=== PATIENT | female | born 1950 | race Caucasian/White ===

== ENCOUNTER 2022-05-14 10:51 | Observation (INO) | payer MEDICARE, SELFPAY ==
[2022-05-14 11:06] VITALS: BP 114/67; PULSE 75; RESP 18; TEMP 36.5; O2SAT 94
--- NOTE | 2022-05-14 11:58 | ED_ITS ---
HPI - Extremity Problem General: Chief complaint: Extremity Problem,Nontraumatic Stated complaint: Right leg red and swollen Time Seen by Provider: 05/14/22 11:58 History of Present Illness: Ms. Craven is a 71-year-old lady with history of hypertension and history of cancer status post completion of treatment who presents to the emergency department due to atraumatic right leg pain. She reports onset of mild swelling and pain approximately 1 month ago that has been progressively worsening. Yesterday she noticed a wound on the medial aspect which began to drain and increased redness that it spread. Symptoms have progressed to the point that her pain is moderate to severe in intensity worse with ambulation and palpation. Denies fevers or chills. She did have cough and 1 episode of emesis earlier today. Denies known injury or specific provoking factor. No other specific changes in health, exacerbating, or alleviating factors identified. Onset (ago): month(s) Pain Consistency: constant Location: right and lower extremity Quality: aching Exacerbating factors: weight bearing and palpation Review of Systems General: Reports: 10 or more systems reviewed and unremarkable except in HPI and below PFSH ED PFSH: Medical History Anal cancer Borderline diabetes Cellulitis of leg, right History of cancer Port-A-Cath in place Right leg swelling Surgical History H/O: hysterectomy History of appendectomy Family History Other CAD (coronary artery disease) Social History Smoking and tobacco status: never smoked Alcohol intake: never History of recent travel: No Physical Exam Const: COMMON NORMALS: alert GENERAL APPEARANCE: cooperative, well developed and in distress (Uncomfortable appearing due to pain) HENMT: COMMON NORMALS: normocephalic and atraumatic HEAD & SCALP: normoceph alic and atraumatic Eye: COMMON NORMALS: conjunctivae normal CONJUNCTIVA: Yes conjunctivae normal SCLERA: sclerae normal Neck/C-Spine: COMMON NORMALS: supple GENERAL: Yes trachea midline Resp: COMMON NORMALS: normal respiratory effort EFFORT & INSPECTION: Yes able to speak in complete sentences Cardio: COMMON NORMALS: regular rate and regular rhythm RATE: regular rate RHYTHM: regular rhythm GI: COMMON NORMALS: Soft to palpation PALPATION: Yes Soft to palpation and No Tenderness to palpation present (GI) PERCUSSION: normal to percussion Extremity: NARRATIVE EXTREMITY EXAM: Edema and erythema most pronounced in distal half of right lower leg with erythema spread towards the knee and foot. Tender to palpation diffusely. No crepitus. approximately 4 cm x 1 cm superficial appearing wound with serous drainage. Distal CMS intact. Neuro: COMMON NORMALS: moves all extremities SENSORIUM/ORIENTATION: Yes alert and No Orientation impaired Psych: COMMON NORMALS: mental status grossly normal and Normal thought process present THOUGHT PROCESS: Normal thought process present Course ED course: - Patient was seen and evaluated by me at bedside - Patient placed on cardiac monitors, IV access obtained - Initial evaluation notable for exam as above - Labs and xrays personally interpreted by me - Analgesia, antiemetic, antibiotic given. - Labs notable for mild leukocytosis. Mild hypokalemia. BNP elevated. CRP and procalcitonin elevated. - Imaging notable for no acute fracture identified on tibia/femur x-ray. Ultrasound negative for DVT. - Upon serial reexamination after treatment the patient was mildly improved though requiring additional treatment - Based on patient history, evaluation, and testing as interpreted the most likely cause of the patient's condition is cellulitis - The results of ED evaluation were discussed with the patient including plan for admission due to requirement for level of care not available if discharged to prevent significant worsening/deterioration. - Admitting service was contacted and Dr Rojas with the hospitalist service agreed to admit the patient - Patient was admitted without further deterioration or significant events. Note: Click bubbles or prepopulated avila in note writing are used for assistance with data collection and billing and are inherently more limited than narrative and other text portions of this note. Please use narrative for additional clinical history and defer to narrative/free test for any case of contradictory information. If information appears in only free text or click bubble it should be considered present or absent as reported. Please contact note advertising copywriter for clarifications of clinical information or contradictory information. MDM is a brief summary, contradictory or erroneous seeming information should be clarified and full note should be reviewed. Vital Signs: Vital signs: Vital Signs Temperature 99.5 F 05/16/22 17:19 Pulse Rate 72 05/16/22 17:19 Respiratory Rate 16 05/16/22 17:19 Blood Pressure 148/76 05/16/22 17:19 Pulse Oximetry 94 05/16/22 17:19 MDM - Extremity (Nontraumatic) Medical Decision Making [id number]-year-old lady with recent history of cancer presenting with atraumatic leg swelling with redness and wound. Mild associated generalized symptoms. No evidence of DVT. Admitted for IV antibiotics. Medical Records I reviewed the patient's medical records. Lab Data I reviewed the patient's lab results. : 05/15/22 04:52 05/15/22 04:52 Radiology Impressions Tibia/Fibula X-Ray 05/14/22 12:05 Impression: Negative for right leg fracture. Chest X-Ray 05/14/22 12:07 Impression: 1. Right lower lobe patchy opacity which could represent pneumonia and/or atelectasis. 2. Atherosclerosis and cardiomegaly. Lower Extremity CTA 05/14/22 16:48 IMPRESSION: 1. No arterial stenosis, occlusion or dissection. 2. Diffuse subcutaneous edema in the right lower leg and foot. IMPRESSION: 1. No arterial stenosis, occlusion or dissection. 2. Achilles tendinopathy. Laboratory Results WBC 12.0 10^3/uL (4.0-10.0) H 05/14/22 12:14 RBC 4.33 10^6/uL (4.1-5.3) 05/14/22 12:14 Hgb 12.3 g/dL (11.5-15.3) 05/14/22 12:14 Hct 36.8 % (37.0-47.0) L 05/14/22 12:14 MCV 85.0 fl (81-99) 05/14/22 12:14 MCH 28.4 pg (28.0-34.0) 05/14/22 12:14 MCHC 33.4 g/dL (30.0-36.0) 05/14/22 12:14 RDW 14.6 % (12.1-15.1) 05/14/22 12:14 Plt Count 167 10^3/cmm (130-400) 05/14/22 12:14 MPV 10.2 fL (7.4-10.4) 05/14/22 12:14 Neut % (Auto) 87.7 % 05/14/22 12:14 Lymph % (Auto) 7.3 % 05/14/22 12:14 Rains % (Auto) 4.5 % 05/14/22 12:14 Eos % (Auto) 0.0 % 05/14/22 12:14 Baso % (Auto) 0.2 % 05/14/22 12:14 Neut # (Auto) 10.52 10^3/uL (1.8-7.7) H 05/14/22 12:14 Lymph # (Auto) 0.9 10^3/uL (0.8-4.8) 05/14/22 12:14 Rains # (Auto) 0.5 10^3/uL (0.2-0.9) 05/14/22 12:14 Eos # (Auto) 0.0 10^3/uL (0.0-0.8) 05/14/22 12:14 Baso # (Auto) 0.0 10^3/uL (0.0-0.1) 05/14/22 12:14 Nucleated RBC % (auto) 0 % 05/14/22 12:14 Nucleated RBCs # 0.0 /100WBC 05/14/22 12:14 Sodium 136 mmol/L (136-145) 05/14/22 12:14 Potassium 3.3 mmol/L (3.5-5.1) L 05/14/22 12:14 Chloride 100 mmol/L (98-107) 05/14/22 12:14 Carbon Dioxide 26 mmol/L (22-29) 05/14/22 12:14 Anion Gap 13.3 (5-19) 05/14/22 12:14 BUN 17 mg/dL (8-23) 05/14/22 12:14 Creatinine 0.7 mg/dL (0.5-0.9) 05/14/22 12:14 GFR Calculation Not Reportable 05/14/22 12:14 Glucose 130 mg/dL (65-115) H 05/14/22 12:14 Calculated Osmolality 285 mOsm/kg (285-295) 05/14/22 12:14 Uric Acid 5.4 mg/dL (2.4-5.7) 05/14/22 12:24 Calcium 8.2 mg/dL (8.5-10.5) L 05/14/22 12:14 Total Bilirubin 1.0 mg/dL (0.15-1.2) 05/14/22 12:14 AST 12 U/L (0-32) 05/14/22 12:14 ALT 8 U/L (0-33) 05/14/22 12:14 Alkaline Phosphatase 73 IU/L (35-105) 05/14/22 12:14 C-Reactive Protein 274.6 mg/L (0.0-4.9) H 05/14/22 12:24 NT-Pro-B Natriuret Pep 1986 pg/mL (0-125) H 05/14/22 12:24 Total Protein 7.0 g/dL (6.6-8.7) 05/14/22 12:14 Albumin 3.2 g/dL (3.5-5.2) L 05/14/22 12:14 Globulin 3.8 g/dL (1.3-4.6) 05/14/22 12:14 Procalcitonin 2.06 ng/mL (0-0.5) H 05/14/22 12:24 Discharge Plan Discharge Patient Disposition: Placed in Observation Admit Provider: Claudia Rojas Clinical Impression: Cellulitis of leg, right, Leg wound, right Discharge Diet: Cardiac Discharge Activity: Increase activity as tolerated Coding Level of Care Code ED Drive In Theater Attendant for Chg Fwd Exam Comprehensive
--- NOTE | 2022-05-14 12:05 | USCV_ITS ---
Herber Whitfield Age: 71 Gender: F : 1950 Exam Date: 05/14/2022 12:43 Ordering Phys: Arian Wheatley MD Technologist: SERGIO Exam Location: [facility] [place] Indication: RLE PAIN AND SWELLING HISTORY: Lower extremity swelling. Lower extremity pain. PROCEDURES: Venous duplex imaging was performed in only the right lower extremity. The following venous structures were evaluated: common femoral vein, profunda vein, proximal portion of the greater saphenous vein, superficial femoral vein, and the popliteal vein. In addition, the posterior tibial and peroneal trunk were evaluated. Serial compression, augmentation maneuvers, and spectral Doppler flow evaluation were performed. FINDINGS: Normal 2-D Doppler and augmentation and compressibility throughout the lower extremity venous structures. Additional imaging through the proximal calf veins also reveals no thrombus. Limited evaluation of the greater saphenous vein is patent with no thrombus. Examination was technically limited due to body habitus. CONCLUSIONS No DVT right lower extremity. Dr. Janette Garcia DO (Electronically Signed) Final Date: 14 May 2022 15:02 S
--- NOTE | 2022-05-14 12:05 | XR_ITS ---
WS: [id number] Right leg including the tibia and fibula, AP and lateral views, 05/14/2022 Clinical Data: swelling, medial wound Comparison: None. Findings: No fractures or dislocations are seen. The tibia and fibula are intact. The soft tissues are normal. XR/XR tibia fibula RT 2V [id number] Impression: Negative for right leg fracture.
--- NOTE | 2022-05-14 12:07 | XR_ITS ---
WS: [id number] Portable AP upright chest, 05/14/2022 Clinical Data: cough Comparison: Portable chest, 03/29/2019. Findings: No nodules, masses or effusions are seen. There is a minimal patchy opacity in right lower lobe which could represent atelectasis and/or pneumonia. The heart is enlarged. The pulmonary vascula rity is not increased. No pneumothorax is seen. The aortic arch and descending thoracic aorta show mi ld tortuosity. There is a left infusion catheter which ends in the superior vena cava. XR/XR chest 1V portable [id number] Impression: 1. Right lower lobe patchy opacity which could represent pneumonia and/or atele ctasis. 2. Atherosclerosis and cardiomegaly.
[2022-05-14 12:18] VITALS: RESP 18; O2SAT 97
[2022-05-14] MEDS: ondansetron 2 mg/ML SDV 2 mL 4 MG IVP (12:18)
[2022-05-14] MEDS: morphine 4 mg/mL SDV 1 mL IM (12:18)
[2022-05-14 12:37] VITALS: PULSE 70; RESP 18; O2SAT 98
[2022-05-14 12:37] LABS: Basophils % 0.2 %; Hematocrit 36.8 % (37.0-47.0); Hemoglobin 12.3 g/dL (11.5-15.3); Lymphocytes # 0.9 10^3/uL (0.8-4.8); Lymphocytes % 7.3 %; Mean Corpuscular HGB Conc 33.4 g/dL (30.0-36.0); Mean Corpuscular Hemoglobin 28.4 pg (28.0-34.0); Mean Platelet Volume 10.2 fL (7.4-10.4); Monocytes # 0.5 10^3/uL (0.2-0.9); Monocytes % 4.5 %; Neutrophils # 10.52 10^3/uL (1.8-7.7); Neutrophils % 87.7 %; Nucleated Red Blood Cells % 0 %; Platelet Count 167 10^3/cmm (130-400); Red Blood Count 4.33 10^6/uL (4.1-5.3); Red Cell Distribution Width 14.6 % (12.1-15.1)
[2022-05-14 13:00] LABS: Alanine Aminotransferase 8 U/L (0-33); Albumin Level 3.2 g/dL (3.5-5.2); Alkaline Phosphatase 73 IU/L (35-105); Anion Gap 13.3 (5-19); Aspartate Amino Transferase 12 U/L (0-32); Blood Urea Nitrogen 17 mg/dL (8-23); Calcium 8.2 mg/dL (8.5-10.5); Carbon Dioxide 26 mmol/L (22-29); Chloride 100 mmol/L (98-107); Globulin 3.8 g/dL (1.3-4.6); Glucose 130 mg/dL (65-115); Osmolality Calculated 285 mOsm/kg (285-295); Potassium 3.3 mmol/L (3.5-5.1); Sodium 136 mmol/L (136-145)
[2022-05-14] MEDS: ketorolac 30 mg/mL INJ 15 MG IVP (13:46)
--- NOTE | 2022-05-14 13:46 | P.HP_ITS ---
Providers/Chief Complaint Primary Care Provider: ALICIA CLEMONS MD Chief Complaint: Right leg red and swollen History of Present Illness Alexx Craven is a 71 year old female who carries history of anal cancer status post chemoradiotherapy, patient is presented to the hospital for worsening of swelling and redness of her right leg. Her symptoms started roughly a month ago, she has seen PCP who recommended her to go to the ER today, patient is stating that he started with a blister a month ago which got worse, now she is not able to put any weight on the right leg, it has gotten extremely red, the redness has involved her right knee she has not noticed any fever, nausea, vomiting, diarrhea or chest pain. She has not used any antibiotics. No bug bites. No evidence of snakebite. Patient is independent for daily activities, but lately started using a walker, today because of worsening of symptoms and recommendation of PCP she decided to come to the hospital for further evaluation. In the ER she has leukocytosis however she is not septic, afebrile, blood pressure stable Very tender to palpation, I have requested CTA right leg with runoff She has been getting antibiotics, Review of Systems Const: Reports: chills, body aches and malaise Eyes: Denies: change in vision ENMT: Denies: throat pain Card: Denies: chest pain Resp: Denies: dyspnea GI: Denies: abdominal pain : Denies: flank pain Musc: Reports: extremity pain, extremity swelling, joint swelling, joint redness and joint warmth Skin/Breast: Reports: rash, skin pain, skin tenderness and changing lesions Neuro: Denies: headache(s) Psych: Denies: anxiety Endo: Denies: polyuria Syed/Lymph: Denies: easy bruising All/Imm: Denies: urticaria Medications/Allergies Home Medications Medication Instructions Recorded Confirmed Last Taken Type amlodipine 10 mg tablet 10 mg PO QAM 04/07/20 05/14/22 05/14/22 History albuterol sulfate 90 mcg/actuation 2 puff INHALATION QID PRN 05/14/22 05/14/22 Unknown History aerosol inhaler cyanocobalamin (vitamin B-12) 5,000 mcg SUBLINGUAL DAILY 05/14/22 05/14/22 Unknown History 5,000 mcg sublingual tablet (Vitamin B-12) vitamin E 2 cap PO DAILY 05/14/22 05/14/22 Unknown History Allergies Allergy/AdvReac Type Severity Reaction Status Date / Time No Known Allergies Allergy Verified 05/14/22 11:08 PFSH Acute PFSH: Medical History Anal cancer Borderline diabetes Cellulitis of leg, right History of cancer Port-A-Cath in place Right leg swelling Surgical History H/O: hysterectomy History of appendectomy Family History Other CAD (coronary artery disease) Social History Smoking and tobacco status: never smoked Alcohol intake: never History of recent travel: No Vitals/I&O/Wt Last Vital Signs Temp 97.7 F 05/14/22 11:06 Pulse 70 05/14/22 12:37 Resp 18 05/14/22 12:37 BP 114/67 05/14/22 11:06 Pulse Ox 98 05/14/22 12:37 Weight last 48 hrs Weight 116.573 kg Physical Exam Narrative: elderly female Morbidly obese She has erythema of her right leg extending from toes all the way up to her right knee It mostly involves anterior surface, Tender to palpate No crepitation No signs of ischemic ulcers Open wound above right malleolus Left leg unremarkable, Abdomen is soft S1, S2, systolic murmur right second intercostal space No audible stridor or wheezing Awake and alert Complaining of pain of right leg Ankle swelling noted Data : 05/15/22 04:52 05/15/22 04:52 Micro: Microbiology 05/14/22 12:22 Blood Culture - Preliminary Blood SPECIMEN COLLECTED 05/14/22 12:22 Blood Culture - Preliminary Blood SPECIMEN COLLECTED A&P Assessment and plan (1) Leg wound, right: Status: Acute (2) Right leg swelling: Status: Acute (3) Cellulitis of leg, right: Status: Acute (4) Morbid obesity: Status: Acute Plan Cellulitis of leg Purulent cellulitis Symptoms started a month ago I have requested CTA runoff and angiogram of her lower extremities I will give her vancomycin and Zosyn He is prediabetic Recently finished chemotherapy and radiotherapy for anal cancer She will be deemed immunocompromise No active signs of crepitation I will keep her on diabetic diet Will put low-dose sliding scale Check CRP, ESR We will follow-up with CT scan results I will give her anti-inflammatory as well, bowel regimen and opioids She is not showing signs of sepsis She is afebrile, mild leukocytosis noted We will obtain echo for systolic murmur grade 2/6 right second intercostal space no previous history of murmur as per the patient, she does not carry history of IN, CHF Attestations Medical Necessity Statement*: Anticipating more than 2 midnights for purulent cellulitis Time Spent in Patient Care: 35 Coding Level of Care Code Acute Floral Designer Salesperson for Meghan Fwd Diagnoses Leg wound, right S81.801A Right leg swelling M79.89 Cellulitis of leg, right L03.115 Morbid obesity E66.01
[2022-05-14] MEDS: clindamycin 600 MG/50 ML PREMIX 100 MG IV (13:51)
[2022-05-14] MEDS: acetaminophen 500 mg Tablet 1000 MG PO (13:52)
[2022-05-14 14:52] LABS: NT Pro B Type Natriuretic Pept 1986 pg/mL (0-125); Procalcitonin 2.06 ng/mL (0-0.5)
[2022-05-14 15:03] LABS: C Reactive Protein 274.6 mg/L (0.0-4.9); Uric Acid 5.4 mg/dL (2.4-5.7)
--- NOTE | 2022-05-14 16:48 | CTR_ITS ---
PROCEDURE INFORMATION: Exam: CTA Right Lower Extremity With Contrast Exam date and time: 05/14/2022 5:26 PM Age: 71 years old Clinical indication: Cellulitis and swelling, leg or foot; Calf and thigh; Right; Patient HX: C/O rle pain/swelling; Additional info: Rle cellulitis and wound, eval deeper tracting and vascular, mid thigh down R leg TECHNIQUE: Imaging protocol: Computed tomographic angiography of the Right lower extremity with contrast. 3D rendering (Not supervised by radiologist): MIP and/or 3D reconstructed images were created by the technologist. Radiation optimization: All CT scans at this facility use at least one of these dose optimization techniques: automated exposure control; mA and/or kV adjustment per patient size (includes targeted exams where dose is matched to clinical indication); or iterative reconstruction. Contrast material: OMNI 350; Contrast volume: 95 ml; Contrast route: INTRAVENOUS (IV); COMPARISON: CR XR tibia fibula RT 2V [id number] 05/14/2022 12:34 PM RADIATION DOSE METRICS: Total DLP (mGy-cm): 1016.48 FINDINGS: Aorta: The mild distal aortic atherosclerotic calcification. No visible aneurysm or luminal narrowing. Right iliac arteries: Minimal calcific plaque in the right common iliac artery without stenosis. Normal right internal and external iliac arteries. Right femoral/popliteal arteries: Normal right common femoral artery. Right profunda femorals artery is patent. Normal right superficial femoral artery. Normal right popliteal artery. Right infrapopliteal arteries: Patent 3 vessel runoff to the right foot. Bones/joints: Bones are unremarkable. Soft tissues: Diffuse subcutaneous edema in right lower leg and foot. PROCEDURE INFORMATION: Exam: CTA Left Lower Extremity With Contrast Exam date and time: 05/14/2022 5:26 PM Age: 71 years old Clinical indication: Cellulitis and swelling, leg or foot; Calf and thigh; Right; Patient HX: C/O rle pain/swelling; Additional info: Rle cellulitis and wound, eval deeper tracting and vascular, mid thigh down R leg TECHNIQUE: Imaging protocol: Computed tomographic angiography of the Left lower extremity with contrast. 3D rendering (Not supervised by radiologist): MIP and/or 3D reconstructed images were created and reviewed. COMPARISON: No relevant prior studies available. FINDINGS: Left iliac arteries: Left common and external iliac arteries are normal. There is mild calcific plaque without stenosis in the left internal iliac artery. Left femoral/popliteal arteries: Left common and superficial femoral arteries are normal. Left profundus femoris artery is normal. Left popliteal artery is normal. Left infrapopliteal arteries: There is patent 2 vessel runoff to the left foot. The posterior tibial artery is not visible. Stomach and bowel: There is mild sigmoid colonic diverticulosis without evidence of diverticulitis. Reproductive: The uterus is absent. There is no adnexal mass or large cyst. Intraperitoneal space: No pelvic free fluid. Bones/joints: Bones are unremarkable. Soft tissues: Increased AP diameter of the Achilles tendon measuring up to [address]/[place] [address] IMPRESSION: 1. No arterial stenosis, occlusion or dissection. 2. Diffuse subcutaneous edema in the right lower leg and foot. IMPRESSION: 1. No arterial stenosis, occlusion or dissection. 2. Achilles tendinopathy.
[2022-05-14] MEDS: iohexol 350 mg/mL 100 mL Btl IV (17:36)
[2022-05-14] MEDS: enoxaparin 30 mg/0.3 mL Syringe SUBCUT (18:25)
[2022-05-14] MEDS: potassium chloride ER 20 mEq Tablet 40 MEQ PO (18:25)
[2022-05-14] MEDS: vancomycin 1,250 MG/250 ML PIGGYBACK 200 MG IV (18:26)
[2022-05-14] MEDS: bacitracin ointment 28 gm TOPICAL (18:27)
[2022-05-14 18:29] VITALS: BMI 41.3
[2022-05-14 20:00] VITALS: PULSE 89; RESP 18; O2SAT 90
[2022-05-14] MEDS: piperacillin-tazobactam 3.375 GM in sodium chloride 0.9% (plus) 50 ML IV (20:49)
[2022-05-14] MEDS: ibuprofen 200 mg Tablet 400 MG PO (20:49)
[2022-05-14 21:09] LABS: Glucose Point of Care 152 mg/dL (70-110)
[2022-05-15] VITALS (8 sets, daily range): BP systolic 90–129; BP diastolic 55–69; PULSE 57–76; RESP 16–17; TEMP 36.6–38; O2SAT 94–98
--- NOTE | 2022-05-15 01:20 | PC.NURSE ---
i reported low pulse 57 to nurse
[2022-05-15 05:34] LABS: Basophils % 0.1 %; Eosinophils # 0.1 10^3/uL (0.0-0.8); Eosinophils % 1.5 %; Hematocrit 37.2 % (37.0-47.0); Hemoglobin 12.1 g/dL (11.5-15.3); Lymphocytes # 0.6 10^3/uL (0.8-4.8); Lymphocytes % 6.9 %; Mean Corpuscular HGB Conc 32.5 g/dL (30.0-36.0); Mean Corpuscular Hemoglobin 28.2 pg (28.0-34.0); Mean Corpuscular Volume 86.7 fl (81-99); Mean Platelet Volume 10.7 fL (7.4-10.4); Monocytes # 0.5 10^3/uL (0.2-0.9); Neutrophils # 7.94 10^3/uL (1.8-7.7); Neutrophils % 86.2 %; Nucleated Red Blood Cells % 0 %; Platelet Count 155 10^3/cmm (130-400); Red Blood Count 4.29 10^6/uL (4.1-5.3); Red Cell Distribution Width 14.7 % (12.1-15.1); White Blood Count 9.2 10^3/uL (4.0-10.0)
[2022-05-15] MEDS: vancomycin 1,250 MG/250 ML PIGGYBACK 200 MG IV ×2 (05:58→17:25)
[2022-05-15] MEDS: piperacillin-tazobactam 3.375 GM in sodium chloride 0.9% (plus) 50 ML IV ×3 (05:58→20:14)
[2022-05-15 05:59] LABS: Anion Gap 11.7 (5-19); Blood Urea Nitrogen 24 mg/dL (8-23); C Reactive Protein 285.4 mg/L (0.0-4.9); Calcium 8.4 mg/dL (8.5-10.5); Carbon Dioxide 29 mmol/L (22-29); Chloride 103 mmol/L (98-107); Glucose 116 mg/dL (65-115); Magnesium 2.2 mg/dL (1.7-2.3); Osmolality Calculated 295 mOsm/kg (285-295); Potassium 3.7 mmol/L (3.5-5.1); Sodium 140 mmol/L (136-145)
[2022-05-15 06:53] LABS: Glucose Point of Care 124 mg/dL (70-110)
[2022-05-15] MEDS: FUROsemide 20 mg Tablet PO (09:57)
[2022-05-15] MEDS: lactated ringers 500 ML 999 ML IV (09:57)
[2022-05-15] MEDS: sennosides-docusate Tablet 1 TAB PO (09:57)
[2022-05-15] MEDS: bacitracin ointment 28 gm TOPICAL ×3 (09:57→20:14)
[2022-05-15] MEDS: enoxaparin 30 mg/0.3 mL Syringe SUBCUT ×2 (09:57→17:25)
[2022-05-15 12:08] LABS: Glucose Point of Care 120 mg/dL (70-110)
--- NOTE | 2022-05-15 13:13 | P.PN_ITS ---
Subjective Subjective: Patient is endorsing feeling better Her leg pain has improved She is able to walk today She has noticed significant improvement CTA did not show any significant ischemia or stenosis Vitals/I&O/Wt Last Vital Signs Temp 98 F 05/15/22 11:05 Pulse 72 05/15/22 11:05 Resp 17 05/15/22 11:05 BP 129/67 05/15/22 11:05 Pulse Ox 95 05/15/22 11:05 05/14/22 05/15/22 05/15/22 22:59 06:59 14:59 Intake Total 300 / 300 50 / 350 730 / 730 Output Total 180 / 180 Balance 300 / 300 -130 / 170 730 / 730 Weight last 48 hrs Weight 116.074 kg Weight 116.573 kg Physical Exam Narrative: Patient is sitting at the bedside Stating improvement in redness swelling she is able to walk Nonfocal neuro exam Redness is improving Erythema has reduced significantly Right leg is nontender Nonfocal neuro exam Saturating well on room air Pleasant and cooperative Abdomen soft, morbid obese Data : 05/15/22 04:52 05/15/22 04:52 Micro: Microbiology 05/14/22 12:22 Blood Culture - Preliminary Blood NEGATIVE TO DATE 05/14/22 12:22 Blood Culture - Preliminary Blood NEGATIVE TO DATE A&P Assessment and plan (1) Morbid obesity: Status: Acute (2) Leg wound, right: Status: Acute (3) Right leg swelling: Status: Acute (4) Cellulitis of leg, right: Status: Acute Plan Right leg purulent cellulitis Improving Erythema pain and swelling has improved significantly Am planning to discharge her tomorrow, she will go home She will need oral antibiotics at the time of discharge No signs of bacteremia Afebrile Leukocytosis improved Systolic murmur, echo reveals EF 60% trace mitral valve regurgitation mild aortic stenosis Preserved ejection fraction heart failure exacerbation present on admission Gentle diuresis Patient is full code Cardiac diet Full code DVT prophylaxis on board Attestations Medical Necessity Statement*: Discharge tomorrow Time Spent in Patient Care: 30 Coding Level of Care Code Acute Propellant Charge Zone Assembler for Chg Fwd Diagnoses Morbid obesity E66.01 Leg wound, right S81.801A Right leg swelling M79.89 Cellulitis of leg, right L03.115
--- NOTE | 2022-05-15 16:48 | USCV_ITS ---
Alexx Craven Age: 71 Gender: F : 1950 Exam Date: 05/15/2022 09:07 Ordering Phys: Claudia Rojas MD Technologist: SERGIO Exam Location: [facility] [place] Indication: MURMUR BP: 115 / 69 HR: 58 Rhythm: Sinus Technical Quality: Adequate MEASUREMENTS (Male / Female) Normal Values FINDINGS Left Ventricle Normal left ventricular size. LV systolic function is normal with EF of 55-60%. No regional wall motion abnormalities. Right Ventricle The right ventricle is normal in size and function. Right Atrium The right atrium is normal in size. Left Atrium The left atrium is normal in size. Mitral Valve Mild mitral annular calcification without significant stenosis or prolapse. There is trace mitral regurgitation. Aortic Valve Aortic valve is thickened. Mild aortic stenosis with a mean gradient of 9 mmHg and aortic valve area of 1.38 cm squared. There is no aortic regurgitation. Tricuspid Valve Structurally normal tricuspid valve without significant stenosis. Trace tricuspid regurgitation. Pulmonary artery systolic pressure is normal. Pulmonic Valve Not well visualized Pericardium Normal pericardium without effusion. Aorta Normal ascending aorta dimension. IVC CONCLUSIONS LV systolic function is normal with EF 55 to 60%. Trace mitral regurgitation. Mild aortic stenosis with a mean gradient of 9 mmHg and aortic valve area of 1.38 cm squared Trace tricuspid regurgitation. No comparison studies are available Yan Rivera MD (Electronically Signed) Final Date: 15 May 2022 13:08 S
[2022-05-15 17:17] LABS: Glucose Point of Care 144 mg/dL (70-110)
[2022-05-15 21:09] LABS: Glucose Point of Care 126 mg/dL (70-110)
[2022-05-16] VITALS (7 sets, daily range): BP systolic 110–148; BP diastolic 63–76; PULSE 63–73; RESP 16–20; TEMP 36.7–37.5; O2SAT 90–95
[2022-05-16] MEDS: piperacillin-tazobactam 3.375 GM in sodium chloride 0.9% (plus) 50 ML IV (04:16)
[2022-05-16 06:00] LABS: Procalcitonin 0.71 ng/mL (0-0.5)
[2022-05-16 06:11] LABS: Vancomycin Trough 10.9 ug/mL (10-15)
[2022-05-16 06:12] LABS: C Reactive Protein 176.7 mg/L (0.0-4.9)
[2022-05-16] MEDS: vancomycin 1,250 MG/250 ML PIGGYBACK 200 MG IV (06:18)
--- NOTE | 2022-05-16 06:19 | PC.NURSE ---
VANC T Vanc trough 10.9 this am.
[2022-05-16 07:01] LABS: Glucose Point of Care 106 mg/dL (70-110)
[2022-05-16] MEDS: FUROsemide 20 mg Tablet PO (09:55)
[2022-05-16] MEDS: sennosides-docusate Tablet 1 TAB PO (09:55)
[2022-05-16] MEDS: enoxaparin 30 mg/0.3 mL Syringe SUBCUT (09:55)
[2022-05-16] MEDS: bacitracin ointment 28 gm TOPICAL (09:56)
--- NOTE | 2022-05-16 11:11 | P.DS_ITS ---
Discharge Providers Date of Admission: 05/14/22 14:06 Date of Discharge: May 16, 2022 Attending Provider at Admission: Claudia Rojas MD Attending Provider at Discharge: Claudia Rojas MD Primary Care Provider: ALICIA CLEMONS MD Diagnoses at Discharge Discharge Diagnosis (1) Morbid obesity: Status: Acute (2) Leg wound, right: Status: Acute (3) Right leg swelling: Status: Acute (4) Cellulitis of leg, right: Status: Acute Reason for Visit Reason for Visit: Right leg red and swollen Hospital Course Hospital Course 71-year-old female who was admitted for management evaluation of purulent cellulitis of her leg. She was given IV antibiotics, her CRP, inflammatory markers trending down during her hospitalization, she remained afebrile, cultures negative to date. Her erythema of leg improved significantly. At the time of discharge she will get doxycycline, I asked her to do follow-up with wound care, she will get topical bacitracin as well. CT of lower extremity did not show any arterial or vascular compromise. Venous Doppler ruled out DVT. No signs of necrotizing fasciitis. She was not septic. For her systolic murmur echo was done which showed mild aortic stenosis, she was given Lasix because of edema of leg along potassium, I will replenish her potassium as well, discontinue Lodine and use lisinopril instead. Physical Exam Narrative: Patient is sitting at the bedside improvement in redness & swelling she is able to walk Nonfocal neuro exam Redness is improving Erythema has reduced significantly Right leg is nontender Nonfocal neuro exam Saturating well on room air Pleasant and cooperative Abdomen soft, morbid obese Discharge Data Studies Completed and Pending Completed Studies During Hospitalization Category Date Time Status CTA lower extremity bilateral [place] [id number]] Cat Scan 05/14/22 16:48 Completed Urgent XR chest 1V portable [id number] Urgent Exams 05/14/22 12:07 Completed XR tibia fibula RT 2V [id number] Urgent Exams 05/14/22 12:05 Completed CV. echo complete* [id number] Routine Ultrasound 05/15/22 16:48 Completed US venous duplex lower extremity RT [CV venous duplex Ultrasound 05/14/22 12:[place] [id number]] Stat Pending at discharge Category Date Time Status Blood Culture Stat Lab 05/14/22 12:22 Results Radiology Impressions Tibia/Fibula X-Ray 05/14/22 12:05 Impression: Negative for right leg fracture. Chest X-Ray 05/14/22 12:07 Impression: 1. Right lower lobe patchy opacity which could represent pneumonia and/or atelectasis. 2. Atherosclerosis and cardiomegaly. Lower Extremity CTA 05/14/22 16:48 IMPRESSION: 1. No arterial stenosis, occlusion or dissection. 2. Diffuse subcutaneous edema in the right lower leg and foot. IMPRESSION: 1. No arterial stenosis, occlusion or dissection. 2. Achilles tendinopathy. Laboratory Results WBC 9.2 10^3/uL (4.0-10.0) 05/15/22 04:52 RBC 4.29 10^6/uL (4.1-5.3) 05/15/22 04:52 Hgb 12.1 g/dL (11.5-15.3) 05/15/22 04:52 Hct 37.2 % (37.0-47.0) 05/15/22 04:52 MCV 86.7 fl (81-99) 05/15/22 04:52 MCH 28.2 pg (28.0-34.0) 05/15/22 04:52 MCHC 32.5 g/dL (30.0-36.0) 05/15/22 04:52 RDW 14.7 % (12.1-15.1) 05/15/22 04:52 Plt Count 155 10^3/cmm (130-400) 05/15/22 04:52 MPV 10.7 fL (7.4-10.4) H 05/15/22 04:52 Neut % (Auto) 86.2 % 05/15/22 04:52 Lymph % (Auto) 6.9 % 05/15/22 04:52 [place] % (Auto) 5.0 % 05/15/22 04:52 Eos % (Auto) 1.5 % 05/15/22 04:52 Baso % (Auto) 0.1 % 05/15/22 04:52 Neut # (Auto) 7.94 10^3/uL (1.8-7.7) H 05/15/22 04:52 Lymph # (Auto) 0.6 10^3/uL (0.8-4.8) L 05/15/22 04:52 [place] # (Auto) 0.5 10^3/uL (0.2-0.9) 05/15/22 04:52 Eos # (Auto) 0.1 10^3/uL (0.0-0.8) 05/15/22 04:52 Baso # (Auto) 0.0 10^3/uL (0.0-0.1) 05/15/22 04:52 Nucleated RBC % (auto) 0 % 05/15/22 04:52 Nucleated RBCs # 0.0 /100WBC 05/15/22 04:52 Sodium 140 mmol/L (136-145) 05/15/22 04:52 Potassium 3.7 mmol/L (3.5-5.1) 05/15/22 04:52 Chloride 103 mmol/L (98-107) 05/15/22 04:52 Carbon Dioxide 29 mmol/L (22-29) 05/15/22 04:52 Anion Gap 11.7 (5-19) 05/15/22 04:52 BUN 24 mg/dL (8-23) H 05/15/22 04:52 Creatinine 0.9 mg/dL (0.5-0.9) 05/15/22 04:52 GFR Calculation Not Reportable 05/15/22 04:52 Glucose 116 mg/dL (65-115) H 05/15/22 04:52 POC Glucose 106 mg/dL (70-110) 05/16/22 06:48 Calculated Osmolality 295 mOsm/kg (285-295) 05/15/22 04:52 Uric Acid 5.4 mg/dL (2.4-5.7) 05/14/22 12:24 Calcium 8.4 mg/dL (8.5-10.5) L 05/15/22 04:52 Magnesium 2.2 mg/dL (1.7-2.3) 05/15/22 04:52 Total Bilirubin 1.0 mg/dL (0.15-1.2) 05/14/22 12:14 AST 12 U/L (0-32) 05/14/22 12:14 ALT 8 U/L (0-33) 05/14/22 12:14 Alkaline Phosphatase 73 IU/L (35-105) 05/14/22 12:14 C-Reactive Protein 176.7 mg/L (0.0-4.9) H 05/16/22 04:16 NT-Pro-B Natriuret Pep 1986 pg/mL (0-125) H 05/14/22 12:24 Total Protein 7.0 g/dL (6.6-8.7) 05/14/22 12:14 Albumin 3.2 g/dL (3.5-5.2) L 05/14/22 12:14 Globulin 3.8 g/dL (1.3-4.6) 05/14/22 12:14 Procalcitonin 0.71 ng/mL (0-0.5) H 05/16/22 04:16 Vancomycin Trough 10.9 ug/mL (10-15) 05/16/22 05:36 Vitals Last Vital Signs Temp 98.0 F 05/16/22 07:34 Pulse 68 05/16/22 07:49 Resp 16 05/16/22 07:49 BP 112/73 05/16/22 07:34 Pulse Ox 93 05/16/22 07:49 Discharge Plan Discharge Patient Disposition: Home Condition: Stable Prescriptions: New bacitracin 500 unit/gram ointment 1 applic topical BID Qty: 28 0RF Lasix 20 mg tablet 10 mg PO DAILY Qty: 10 0RF potassium chloride 10 mEq tablet extended release 10 meq PO DAILY Qty: 10 0RF doxycycline hyclate 100 mg tablet 100 mg PO BID 14 Days Qty: 28 0RF hydrocodone-acetaminophen 5-325 mg tablet 1 tab PO BID PRN (Reason: pain) Qty: 20 0RF lisinopril 2.5 mg tablet 2.5 mg PO DAILY Qty: 30 0RF Rx Instructions: do Not take it if blood pressure below 90/60 mmHg Continued albuterol sulfate 90 mcg/actuation HFA aerosol inhaler 2 puff inhalation QID PRN (Reason: Shortness Of Breath) 0RF Vitamin B-12 5,000 mcg Tablet, Sublingual 5,000 mcg SUBLINGUAL DAILY 0RF vitamin E 2 cap PO DAILY 0RF Discontinued amlodipine 10 mg tablet 10 mg PO QAM 0RF Discharge Orders: Discharge Order (Routine); Ordered 05/16/22 Ordered By: Claudia Rojas Referrals: ALICIA CLEMONS MD [Primary Care Provider] - (Please call Tuesday to schedule a follow up appointment.) [facility], [Staff Physician] - 1-3 days (Please call Tuesday to schedule a follow up appointment.) Discharge Diet: Cardiac Discharge Activity: Increase activity as tolerated Patient Instructions: Cellulitis, Lisinopril (By mouth), Furosemide (By mouth), Doxycycline (By mouth), Hydrocodone/Acetaminophen (By mouth) (Vicodin, [place], Lortab), Potassium Chloride (By mouth), Bacitracin (On the skin), Opioid Safety Discharge Attestations Time Spent in Discharge Care*: less than 30 min Quality Metrics Clinical Quality Measures [ No reported AMI, CVA or VTE this stay] Coding Level of Care Code Acute [facility] note Diagnoses Morbid obesity E66.01 Leg wound, right S81.801A Right leg swelling M79.89 Cellulitis of leg, right L03.115
[2022-05-16 11:17] LABS: Glucose Point of Care 124 mg/dL (70-110)
[2022-05-16 16:40] LABS: Glucose Point of Care 107 mg/dL (70-110)
== END 2022-05-16 17:20 | disposition home or self-care (01) | DRG 603 ==
LOC: ER 13:44 → MEDSURG 05-15 01:46
PROVIDERS: Admitting Provider Internal Medicine; Emergency Provider Emergency Medicine; PCP Emergency Medicine; Visit Provider Internal Medicine
DX: L03.115 Cellulitis of right lower limb (principal); E66.01 Morbid (severe) obesity due to excess calories; Z68.41 Body mass index [BMI] 40.0-44.9, adult; Z85.048 Personal history of other malignant neoplasm of rectum, rectosigmoid junction, and anus; I10 Essential (primary) hypertension; R73.03 Prediabetes; E87.6 Hypokalemia; Z92.21 Personal history of antineoplastic chemotherapy; Z92.3 Personal history of irradiation; R01.1 Cardiac murmur, unspecified; I35.0 Nonrheumatic aortic (valve) stenosis
CPT/HCPCS: 36415; 36416; 71045; 73590; 73706; 80048; 80053; 80202; 82962; 83735; 83880; 84145; 84550; 85025; 86140; 87040; 93306; 93971; 96372; G0378; J1650; J1885; J2270; J2405; J2543; J3370; J3490; Q9967